=== PATIENT | female | born 1995 | race Caucasian/White ===

== ENCOUNTER → 2024-06-06 10:48 | Outpatient (REF) | payer BC, SELFPAY | LOC: PNTC 10:48 | PROVIDERS: ATTENDING PHYSICIAN Student in an Organized Health Care Education/Training Program | DX: O36.60X0 Maternal care for excessive fetal growth, unspecified trimester, not applicable or unspecified (principal) | CPT/HCPCS: 76816 ==

== ENCOUNTER → 2024-07-08 10:55 | Outpatient (REF) | payer BC, SELFPAY | LOC: PNTC 10:55 | PROVIDERS: ATTENDING PHYSICIAN Student in an Organized Health Care Education/Training Program | DX: O36.8190 Decreased fetal movements, unspecified trimester, not applicable or unspecified (principal) | CPT/HCPCS: 36415; 59025; 76815 ==

== ENCOUNTER 2024-07-23 02:53 | Inpatient (IN) | payer BC, SELFPAY ==
[2024-07-23 03:05] VITALS: BP 143/86; BMI 27.3
[2024-07-23] MEDS: LR 1000 IV ×3 (03:15→06:21)
[2024-07-23 03:31] LABS: % Basophils 0.4 % (0-2); % Eosinophils 0.6 % (0-6); % Immature Granulocytes 1.2 % (0-0.5); % Lymphocytes 23.2 % (20.5-51.1); % Monocytes 8.5 % (1.7-9.3); % Neutrophils 66.1 % (42.2-75.2); Absolute Basophils 0.1 10^3/uL (0-0.2); Absolute Eosinophils 0.1 10^3/uL (0-0.7); Absolute Immature Granulocytes 0.2 10^3/uL (0-0.05); Absolute Lymphocytes 3.8 10^3/uL (1.2-3.4); Absolute Monocytes 1.4 10^3/uL (0.1-0.6); Absolute Neutrophils 10.8 10^3/uL (1.4-6.5); Hematocrit 40.1 % (37.0-47.0); Hemoglobin 14.2 g/dL (12.0-16.0); Mean Corp Hgb Conc. 35.4 g/dL (33.0-37.0); Mean Corpuscular Hgb 31.6 pg (27.0-31.0); Mean Corpuscular Volume 89.3 fL (81.0-99.0); Mean Platelet Volume 11.2 fL (7.4-10.4); Nucleated Red Blood Cells % 0 %; Platelet Count 283 10^3/uL (130-400); Red Blood Cell Count 4.49 10^6/uL (4.20-5.40); Red Cell Dist. Width 13.2 % (11.5-14.5); White Blood Cell Count 16.4 10^3/uL (4.8-10.8)
[2024-07-23] MEDS: SUBLIMAZE 100 MCG EPIDURAL (04:06)
[2024-07-23] MEDS: FENTANYL/BUPIVACAINE 100 EPIDURAL ×2 (04:06→12:08)
[2024-07-23 05:35] LABS: Protein/creatinine Ratio 0.7; Urine Protein 79 mg/dl
[2024-07-23 05:38] LABS: ALT (SGPT) 14 U/L (0-35); AST (SGOT) 22 U/L (14-36); Alkaline Phosphatase 350 U/L (38-126); Blood Urea Nitrogen 8 mg/dl (7-17); Calcium 9.3 mg/dl (8.4-10.2); Carbon Dioxide 18 mmol/L (22-30); Chloride 105 mmol/L (98-107); Estimated Creatinine Clearance > 125 ml/min; Glucose 85 mg/dl (70-99); Sodium 137 mmol/L (135-145); Total Bilirubin 0.4 mg/dl (0.2-1.3); Total Protein 6.9 g/dl (6.3-8.2); eGFR > 60.00
[2024-07-23 05:42] LABS: Urine Albumin 1+ (Neg - Trace); Urine Bilirubin Negative (Negative); Urine Character Clear (Clear); Urine Color Yellow; Urine Glucose Negative (Negative); Urine Ketone Negative (Negative); Urine Leukocyte Negative (Negative); Urine Nitrite Negative (Negative); Urine Occult Blood 1+ (Negative); Urine Specific Gravity 1.025 (<1.030); Urine Urobilinogen Negative (Neg - 1+)
[2024-07-23 06:11] LABS: Urine Mucus Many
[2024-07-23 06:16] LABS: Urine Calcium Oxalate Crystals Seen
[2024-07-23 06:18] LABS: Urine Bacteria Moderate (Negative); Urine Red Blood Cell 0-2 /HPF (0-2)
[2024-07-23] MEDS: PITOCIN 30 UNITS/NSS 500 ML IV (12:49)
[2024-07-23] MEDS: CYTOTEC 800 MCG RECTAL (16:18)
[2024-07-23] MEDS: HEMABATE 250 MCG IM (16:46)
[2024-07-23] MEDS: MOTRIN 600 MG PO (18:30)
[2024-07-23] MEDS: TYLENOL 650 MG PO (18:31)
[2024-07-24] MEDS: MOTRIN 600 MG PO ×4 (00:33→21:03)
[2024-07-24] MEDS: TYLENOL 650 MG PO ×4 (00:33→21:03)
[2024-07-24 04:40] LABS: Hematocrit 31.6 % (37.0-47.0); Hemoglobin 10.9 g/dL (12.0-16.0)
[2024-07-24] MEDS: PRENATAL PLUS 1 TABLET PO (07:00)
[2024-07-24] MEDS: ZOLOFT 25 MG PO (07:00)
[2024-07-24] MEDS: SENOKOT-S 1 TABLET PO (14:37)
[2024-07-25] MEDS: TYLENOL 650 MG PO ×2 (04:07→10:19)
[2024-07-25] MEDS: MOTRIN 600 MG PO ×2 (04:08→10:19)
[2024-07-25] MEDS: ZOLOFT 25 MG PO (08:47)
[2024-07-25] MEDS: PRENATAL PLUS 1 TABLET PO ×2 (08:47→08:49)
[2024-07-25] MEDS: SENOKOT-S 1 TABLET PO (10:19)
[2024-07-26 15:43] LABS: Syphilis/T. pallidum Ab Reflex Negative (Negative)
== END 2024-07-25 12:17 | disposition home or self-care (01) | DRG 807 ==
LOC: LDRP 02:53
PROVIDERS: Obstetrics & Gynecology; ADMITTING PHYSICIAN Obstetrics & Gynecology; ATTENDING PHYSICIAN Student in an Organized Health Care Education/Training Program
PROC: 10E0XZZ Delivery of Products of Conception, External Approach (ICD-10-PCS; 2024-07-23)
PROC: 0W8NXZZ Division of Female Perineum, External Approach (ICD-10-PCS; 2024-07-23)
PROC: 4A1HXCZ Monitoring of Products of Conception, Cardiac Rate, External Approach (ICD-10-PCS; 2024-07-23)
DX: O99.284 Endocrine, nutritional and metabolic diseases complicating childbirth (principal); Z37.0 Single live birth; O99.892 Other specified diseases and conditions complicating childbirth; E28.2 Polycystic ovarian syndrome; O99.344 Other mental disorders complicating childbirth; F41.9 Anxiety disorder, unspecified; F90.9 Attention-deficit hyperactivity disorder, unspecified type; O62.2 Other uterine inertia; O14.04 Mild to moderate pre-eclampsia, complicating childbirth; O77.0 Labor and delivery complicated by meconium in amniotic fluid; O76 Abnormality in fetal heart rate and rhythm complicating labor and delivery; Z3A.39 39 weeks gestation of pregnancy; Z79.899 Other long term (current) drug therapy
CPT/HCPCS: 88307; 80053; 81003; 81015; 82570; 84156; 85014; 85018; 85025; 86780; 86850; 86900; 86901